=== PATIENT | male | born 1955 ===

== ENCOUNTER 2018-05-24 13:55 | Emergency (ER) | payer OTHER ==
[~2018-05-24] VITALS: Ht 172.7 cm; Wt 104.3 kg
[2018-05-24] MEDS ORDERED: LISINOPRIL1 GM MC (14:10)
[2018-05-24] MEDS ORDERED: CRESTOR5 MG PO (14:11)
== END 2018-05-24 15:59 | disposition home or self-care (01) ==
LOC: ER 13:55
DX: H57.12 Ocular pain, left eye (principal); H04.202 Unspecified epiphora, left side